=== PATIENT | female | born 1940 | race Caucasian/White ===

== ENCOUNTER 2018-10-17 16:23 | Inpatient (IN) | payer OTHER ==
[~2018-10-17] VITALS: Ht 162.6 cm; Wt 83.5 kg
[2018-10-17 16:28] VITALS: Ht 162.6 cm; Wt 83.5 kg
[2018-10-17 17:15] LABS: BASOPHIL % 0.4 % (0-2); PLATELET COUNT 275 x10^3mcL (130-400)
[2018-10-17 17:35] LABS: CALCIUM 8.3 mg/dL (8.5-10.1); CARBON DIOXIDE 27.5 mmol/L (21-32); CHLORIDE SERUM 105 mmol/L (98-107); CREATININE SERUM 1.1 mg/dL (0.6-1.0); GLUCOSE SERUM 115 mg/dL (74-106); POTASSIUM SERUM 3.6 mmol/L (3.5-5.1); SODIUM SERUM 142 mmol/L (136-145)
[2018-10-17 17:41] LABS: ALBUMIN 3.1 g/dL (3.4-5.0); ALKALINE PHOSPHATASE 80 U/L (46-116); ALT/SGPT 31 U/L (14-59); AST/SGOT 42 U/L (15-37); BILIRUBIN TOTAL 0.81 mg/dL (0.20-1.00); TOTAL PROTEIN, SERUM 6.5 g/dL (6.4-8.2)
[2018-10-17] MEDS ORDERED: LASIX20 MG PO (23:03)
[2018-10-17] MEDS ORDERED: ATORVASTATIN CA10 M1 PO (23:04)
[2018-10-17] MEDS ORDERED: PLA75 PO (23:04)
[2018-10-17] MEDS ORDERED: PEPCID20 MG PO (23:04)
[2018-10-17] MEDS ORDERED: ELIQUIS2.5 MG PO (23:04)
[2018-10-17] MEDS ORDERED: ASPIR 8181 MG PO (23:04)
[2018-10-17] MEDS ORDERED: TOPROL XL25 MG PO (23:04)
[2018-10-17 23:49] LABS: MAGNESIUM 1.9 mg/dL (1.8-2.4); PHOSPHOROUS 3.1 mg/dL (2.5-4.9)
[2018-10-17 23:50] LABS: CHOLESTEROL/HDL RATIO 4.7
[2018-10-17 23:53] VITALS: BP 138/83
[2018-10-18 05:39] LABS: BASOPHIL % 0.6 % (0-2); PLATELET COUNT 253 x10^3mcL (130-400); RED CELL DISTRIBUTION WIDTH 14.2 % (11.5-14.5)
[2018-10-18 05:43] LABS: CALCIUM 8.2 mg/dL (8.5-10.1); CARBON DIOXIDE 30.7 mmol/L (21-32); CHLORIDE SERUM 105 mmol/L (98-107); CREATININE SERUM 1.2 mg/dL (0.6-1.0); GLUCOSE SERUM 116 mg/dL (74-106); MAGNESIUM 1.9 mg/dL (1.8-2.4); POTASSIUM SERUM 3.3 mmol/L (3.5-5.1); SODIUM SERUM 142 mmol/L (136-145)
[2018-10-18 05:51] VITALS: BP 113/63
[2018-10-18 08:35] VITALS: BP 91/47
[2018-10-18 13:00] VITALS: BP 98/55
[2018-10-18 18:25] VITALS: BP 123/63
[2018-10-18 18:44] LABS: microscopic required? YES; urine erythrocyte NEGATIVE (NEGATIVE)
[2018-10-18 21:07] VITALS: BP 106/63
[2018-10-19 05:50] VITALS: BP 105/71
[2018-10-19 07:07] LABS: BASOPHIL % 0.5 % (0-2); PLATELET COUNT 246 x10^3mcL (130-400); RED CELL DISTRIBUTION WIDTH 14.1 % (11.5-14.5)
[2018-10-19 07:12] LABS: CALCIUM 8.3 mg/dL (8.5-10.1); CARBON DIOXIDE 31.6 mmol/L (21-32); CHLORIDE SERUM 105 mmol/L (98-107); CREATININE SERUM 1.4 mg/dL (0.6-1.0); GLUCOSE SERUM 95 mg/dL (74-106); POTASSIUM SERUM 4.2 mmol/L (3.5-5.1); SODIUM SERUM 142 mmol/L (136-145)
[2018-10-19 08:40] VITALS: BP 93/51
[2018-10-19 16:30] VITALS: BP 109/63
[2018-10-19 21:24] VITALS: BP 103/59
[2018-10-20 05:11] VITALS: BP 107/48
[2018-10-20 06:21] LABS: BASOPHIL % 0.4 % (0-2); PLATELET COUNT 268 x10^3mcL (130-400); RED CELL DISTRIBUTION WIDTH 14.3 % (11.5-14.5)
[2018-10-20 06:42] LABS: CALCIUM 8.4 mg/dL (8.5-10.1); CARBON DIOXIDE 30.4 mmol/L (21-32); CHLORIDE SERUM 105 mmol/L (98-107); CREATININE SERUM 1.4 mg/dL (0.6-1.0); GLUCOSE SERUM 92 mg/dL (74-106); POTASSIUM SERUM 4.2 mmol/L (3.5-5.1); SODIUM SERUM 141 mmol/L (136-145)
[2018-10-20 08:34] VITALS: BP 101/69
[2018-10-20 12:04] VITALS: BP 114/60
[2018-10-20 16:31] VITALS: BP 106/63
[2018-10-20 20:54] VITALS: BP 111/76
[2018-10-21 05:36] VITALS: BP 115/60
[2018-10-21 07:14] LABS: BASOPHIL % 0.5 % (0-2); PLATELET COUNT 306 x10^3mcL (130-400); RED CELL DISTRIBUTION WIDTH 14.1 % (11.5-14.5)
[2018-10-21 07:33] LABS: CALCIUM 8.9 mg/dL (8.5-10.1); CARBON DIOXIDE 31.2 mmol/L (21-32); CHLORIDE SERUM 103 mmol/L (98-107); CREATININE SERUM 1.5 mg/dL (0.6-1.0); GLUCOSE SERUM 101 mg/dL (74-106); PHOSPHOROUS 4.2 mg/dL (2.5-4.9); POTASSIUM SERUM 3.9 mmol/L (3.5-5.1); SODIUM SERUM 141 mmol/L (136-145)
[2018-10-21 08:21] VITALS: BP 114/67
[2018-10-21 09:57] VITALS: BP 127/67
[2018-10-21 10:06] VITALS: BP 127/67
== END 2018-10-21 11:26 | disposition home health service (06) | DRG 291 ==
LOC: ED 16:23 → DU 23:03
PROVIDERS: Emergency Medicine; ADMIT Internal Medicine
DX: I50.43 Acute on chronic combined systolic (congestive) and diastolic (congestive) heart failure (principal); N17.0 Acute kidney failure with tubular necrosis; J98.11 Atelectasis; J90 Pleural effusion, not elsewhere classified; E44.0 Moderate protein-calorie malnutrition; I75.023 Atheroembolism of bilateral lower extremities; E11.65 Type 2 diabetes mellitus with hyperglycemia; E87.6 Hypokalemia; K21.9 Gastro-esophageal reflux disease without esophagitis; B35.1 Tinea unguium; R80.9 Proteinuria, unspecified; D53.9 Nutritional anemia, unspecified; E78.5 Hyperlipidemia, unspecified; I25.2 Old myocardial infarction; Z79.82 Long term (current) use of aspirin; Z68.32 Body mass index [BMI] 32.0-32.9, adult; Z87.891 Personal history of nicotine dependence; Z86.711 Personal history of pulmonary embolism; Z79.01 Long term (current) use of anticoagulants; Z79.84 Long term (current) use of oral hypoglycemic drugs; Z95.5 Presence of coronary angioplasty implant and graft; Z86.718 Personal history of other venous thrombosis and embolism
CPT/HCPCS: 82962; 83880; 97116-GP; 97530-GP; J1940